=== PATIENT | male | born 1985 | race African-American/Black ===

== ENCOUNTER → 2020-09-22 | Emergency (ER) | payer BC, OTHER ==
[~2020-09-22] VITALS: Ht 180.3 cm; Wt 117.0 kg
[~2020-09-22] MED LIST: MOBIC15 MG PO
[2020-09-22 11:22] VITALS: BP 166/96
== END ==
LOC: ER 11:22
DX: S90.32XA Contusion of left foot, initial encounter (principal); W22.8XXA Striking against or struck by other objects, initial encounter; Y93.89 Activity, other specified; Y92.89 Other specified places as the place of occurrence of the external cause; Y99.8 Other external cause status